=== PATIENT | female | born 1950 | race Two or more races ===

== ENCOUNTER → 2017-12-13 07:26 | Outpatient (CLI) | payer OTHER ==
[~2017-12-13 07:26] MED LIST: VALSARTAN40 MG
== END | disposition home or self-care (01) ==
LOC: LAB 07:26
DX: D64.89 Other specified anemias (principal); M19.90 Unspecified osteoarthritis, unspecified site; E03.8 Other specified hypothyroidism; E55.9 Vitamin D deficiency, unspecified; D51.9 Vitamin B12 deficiency anemia, unspecified; N39.0 Urinary tract infection, site not specified; Z13.0 Encounter for screening for diseases of the blood and blood-forming organs and certain disorders involving the immune mechanism; R19.5 Other fecal abnormalities; E11.9 Type 2 diabetes mellitus without complications; I11.9 Hypertensive heart disease without heart failure; E78.2 Mixed hyperlipidemia; E56.8 Deficiency of other vitamins

== ENCOUNTER 2018-01-14 23:24 | Emergency (ER) | payer OTHER ==
[~2018-01-14] VITALS: Ht 157.5 cm; Wt 63.5 kg
[2018-01-14] MEDS ORDERED: ELIQUIS5 MG (23:45)
[2018-01-14] MEDS ORDERED: NEXIUM40 M1 (23:45)
[2018-01-14] MEDS ORDERED: NORVASC2.5 M1 (23:45)
[2018-01-14] MEDS ORDERED: FLECAINIDE ACET50 MG (23:45)
[2018-01-15] MEDS ORDERED: ZOFRAN ODT4 MG PO (07:41)
[2018-01-15] MEDS ORDERED: MIRALAX510 GM PO (07:41)
[2018-01-15] MEDS ORDERED: INTESTINEX680 M1 PO (07:41)
== END 2018-01-15 08:04 ==
LOC: ER 23:24
DX: K29.60 Other gastritis without bleeding (principal)

== ENCOUNTER 2018-02-26 20:34 | Emergency (ER) | payer OTHER ==
[~2018-02-26] VITALS: Ht 152.4 cm; Wt 68.0 kg
[~2018-02-26 20:34] MED LIST changes: +ELIQUIS5 MG; +FLECAINIDE ACET50 MG; +INTESTINEX680 M1 PO; +MIRALAX510 GM PO; +NEXIUM40 M1; +NORVASC2.5 M1; +ZOFRAN ODT4 MG PO
== END 2018-02-26 22:17 | disposition home or self-care (01) ==
LOC: ER 20:34
DX: M94.0 Chondrocostal junction syndrome [Tietze] (principal); R07.89 Other chest pain; M54.5 Low back pain

== ENCOUNTER 2018-03-08 02:09 | Emergency (ER) | payer OTHER ==
[~2018-03-08] VITALS: Ht 157.5 cm; Wt 63.0 kg
[2018-03-08] MEDS ORDERED: ASPIR 8181 MG (02:23)
== END 2018-03-08 10:05 | disposition home or self-care (01) ==
LOC: ER 02:09
DX: R07.89 Other chest pain (principal); R10.13 Epigastric pain; F41.0 Panic disorder [episodic paroxysmal anxiety]

== ENCOUNTER 2018-03-10 02:03 | Inpatient (IN) | payer OTHER ==
[~2018-03-10] VITALS: Ht 157.5 cm; Wt 68.0 kg
[~2018-03-10 02:03] MED LIST changes: +ASPIR 8181 MG
--- NOTE | 2018-03-10 02:22 | NUR ---
SE RECIBE PTE ALERTA Y ORIENTADA POR AMANDA. PTE REFIERE PRESENTAR DOLOR EN AREA DEL EPIGASTRIO DESDE LAS 9:00PM.
--- NOTE | 2018-03-10 02:46 | NUR ---
SE RECIBE PTE FEMENIA DE 67 YRS ALERTA CONCIENTE Y TRANQUILA EN COMPANIA DE FAMILAIR. PTE ES EVALUADA POR EL ISAAK RANGELE CHRYSTALIN ORDENA TRARTAIENTO LA CUAL SE EJECUTA . SE OBSERVACIONPOR CAMBIOS.
--- NOTE | 2018-03-10 07:54 | NUR ---
SE RECIBE PACIENTE ALERTA Y ORIENTADA X3, CON BUEN PATRON RESPIRATORIO Y SIGNOS VITALES ESTABLES. CANALIZADA EN BRAZO MERNA PATENTE Y INDIRA DE EDEMA BAJANDO UN 0.9NSS AT 125ML/HR. CONSULTADO CON DR. CORDOVA. MUESTRA DE ORINA PENDIENTE A RECOLECTAR. SE FRANTZ TRANQUILA EN CAMA Y CON BARANDAS ELEVADAS. EN ESPERA DE REEVALUACION PARA MANEJO DEL DOLOR Y CONSULTA.
[2018-03-15] MEDS ORDERED: ZANTAC300 MG PO (10:42)
[2018-03-15] MEDS ORDERED: AMOX1TAB5 PO (10:42)
[2018-03-15] MEDS ORDERED: ULTRACET PO (10:43)
== END 2018-03-15 11:47 | disposition home or self-care (01) | DRG 419 ==
LOC: ER 02:03 → SEC-K 10:19 → SURG 10:19
PROVIDERS: ADMIT Surgery
PROC: 0DNW4ZZ Release Peritoneum, Percutaneous Endoscopic Approach (ICD-10-PCS; 2018-03-11)
PROC: 0FT44ZZ Resection of Gallbladder, Percutaneous Endoscopic Approach (ICD-10-PCS; principal; 2018-03-11 15:30)
DX: K80.00 Calculus of gallbladder with acute cholecystitis without obstruction (principal); K66.0 Peritoneal adhesions (postprocedural) (postinfection); E87.6 Hypokalemia; I48.0 Paroxysmal atrial fibrillation; I11.9 Hypertensive heart disease without heart failure; E78.49 Other hyperlipidemia

== ENCOUNTER 2018-06-07 01:26 | Emergency (ER) | payer OTHER ==
[~2018-06-07] VITALS: Ht 157.5 cm; Wt 61.7 kg
[~2018-06-07 01:26] MED LIST changes: +AMOX1TAB5 PO; +ULTRACET PO; +ZANTAC300 MG PO
[2018-06-07] MEDS ORDERED: VISTARIL25 MG PO (04:06)
[2018-06-07] MEDS ORDERED: KETO10TA2 PO (04:06)
== END 2018-06-07 04:55 | disposition home or self-care (01) ==
LOC: ER 01:26
DX: G44.209 Tension-type headache, unspecified, not intractable (principal)

== ENCOUNTER 2018-07-05 09:49 | Outpatient (CLI) | payer OTHER ==
[~2018-07-05 09:49] MED LIST changes: +KETO10TA2 PO; +VISTARIL25 MG PO
== END 2018-07-05 10:04 | disposition home or self-care (01) ==
LOC: LAB 09:49
DX: D64.89 Other specified anemias (principal); M19.90 Unspecified osteoarthritis, unspecified site; E78.49 Other hyperlipidemia; E03.8 Other specified hypothyroidism; E55.9 Vitamin D deficiency, unspecified; D51.9 Vitamin B12 deficiency anemia, unspecified; N39.0 Urinary tract infection, site not specified; Z13.0 Encounter for screening for diseases of the blood and blood-forming organs and certain disorders involving the immune mechanism; R19.5 Other fecal abnormalities

== ENCOUNTER 2018-07-27 10:49 | Outpatient (CLI) | payer OTHER | END 2018-07-27 10:52 | disposition home or self-care (01) | LOC: RAD 10:49 | DX: M54.2 Cervicalgia (principal) ==

== ENCOUNTER → 2018-08-23 | Outpatient (CLI) | payer OTHER | END | disposition home or self-care (01) | LOC: RAD 08:53 | DX: J84.10 Pulmonary fibrosis, unspecified (principal) ==

== ENCOUNTER 2018-09-07 02:22 | Emergency (ER) | payer OTHER ==
[~2018-09-07] VITALS: Ht 157.5 cm; Wt 63.0 kg
[2018-09-07] MEDS ORDERED: RANITIDINE HCL300 M1 PO (08:37)
== END 2018-09-07 08:55 | disposition home or self-care (01) ==
LOC: ER 02:22 → CPU-OBS 02:24 → ER 02:24
DX: K21.9 Gastro-esophageal reflux disease without esophagitis (principal); R07.89 Other chest pain

== ENCOUNTER 2018-10-24 10:31 | Emergency (ER) | payer OTHER ==
[~2018-10-24] VITALS: Ht 157.5 cm; Wt 63.0 kg
[~2018-10-24 10:31] MED LIST changes: +RANITIDINE HCL300 M1 PO
== END 2018-10-24 19:20 | disposition home or self-care (01) ==
LOC: ER 10:31
DX: K52.89 Other specified noninfective gastroenteritis and colitis (principal)

== ENCOUNTER 2020-02-02 06:23 | Emergency (ER) | payer OTHER ==
[~2020-02-02] VITALS: Ht 157.5 cm; Wt 63.5 kg
== END 2020-02-02 09:58 | disposition home or self-care (01) ==
LOC: ER 06:23 → CPU-OBS 06:27 → ER 06:27
DX: K21.9 Gastro-esophageal reflux disease without esophagitis (principal); R07.89 Other chest pain; Z03.818 Encounter for observation for suspected exposure to other biological agents ruled out

== ENCOUNTER → 2020-05-22 11:16 | Outpatient (CLI) | payer OTHER | END | disposition home or self-care (01) | LOC: LAB 11:16 | PROVIDERS: ATTEND Radiology Diagnostic Radiology | DX: D34 Benign neoplasm of thyroid gland (principal) ==

== ENCOUNTER 2020-05-30 07:52 | Outpatient (CLI) | payer OTHER | END 2020-05-30 08:09 | disposition home or self-care (01) | LOC: TOM 07:52 | PROVIDERS: ATTEND Internal Medicine | DX: R10.84 Generalized abdominal pain (principal) | CPT/HCPCS: 74177; Q9965 ==

== ENCOUNTER 2020-06-25 13:19 | Outpatient (CLI) | payer OTHER | END 2020-06-25 13:20 | disposition home or self-care (01) | LOC: NUCLEAR 13:19 | PROVIDERS: ATTEND Specialist | DX: M81.0 Age-related osteoporosis without current pathological fracture (principal) ==

== ENCOUNTER 2020-07-22 08:43 | Outpatient (CLI) | payer OTHER | END 2020-07-26 20:42 | disposition home or self-care (01) | LOC: RX STUDY 08:43 | PROVIDERS: ATTEND Surgery | DX: K59.02 Outlet dysfunction constipation (principal); K57.30 Diverticulosis of large intestine without perforation or abscess without bleeding ==

== ENCOUNTER 2021-07-03 07:31 | Emergency (ER) | payer OTHER ==
[~2021-07-03] VITALS: Ht 157.5 cm; Wt 62.6 kg
== END 2021-07-03 15:29 | disposition home or self-care (01) ==
LOC: ER 07:31
DX: R42 Dizziness and giddiness (principal); K21.9 Gastro-esophageal reflux disease without esophagitis

== ENCOUNTER 2022-06-26 13:08 | Outpatient (CLI) | payer OTHER | END 2022-06-26 13:10 | disposition home or self-care (01) | LOC: NUCLEAR 13:08 | PROVIDERS: ATTEND Student in an Organized Health Care Education/Training Program | DX: M81.0 Age-related osteoporosis without current pathological fracture (principal) ==

== ENCOUNTER 2023-05-06 06:42 | Emergency (ER) | payer OTHER ==
[~2023-05-06] VITALS: Ht 157.5 cm; Wt 60.3 kg
[2023-05-06] MEDS ORDERED: CRESTOR10 MG PO (06:48)
[2023-05-06] MEDS ORDERED: MECLIZINE HCL 25 MG TABLET PO ONE (08:30)
[2023-05-06 08:54] LABS: HEMATOCRIT 43.4 % (36.0-45.00); HEMOGLOBIN 14.9 g/dL (12.0-15.00); MEAN CELL VOLUME 92.5 fL (80.00-100.00); MEAN CORPUSCULAR HEMOGLOBIN 31.7 pg (27.00-32.0); MEAN CORPUSCULAR HGB CONC 34.3 g/dl (32.0-36.0); PLATELET COUNT 204 K/uL (150-450); RED CELL DISTRIBUTION WIDTH 14.4 % (11.5-14.5)
[2023-05-06 09:25] LABS: ALBUMIN 4.2 gm/dL (3.4-5.0); BILIRUBIN TOTAL 0.49 mg/dL (0.3-1.2); CREATININE SERUM 0.67 mg/dL (0.55-1.02); GFR 86.76; GLOBULINA 3.7 G/DL (2.4-3.5); POTASSIUM 3.77 mEq/L (3.5-5.1); TOTAL PROTEIN 7.9 gm/dL (6.4-8.2)
[2023-05-06 09:48] LABS: URINE APPEARANCE Clear; URINE BILIRRUBIN Negative (NEGATIVE); URINE BLOOD Trace; URINE COLOR Yellow; URINE GLUCOSE Negative (NEGATIVE); URINE LEUKOCYTE Negative; URINE NITRATE Negative; URINE PROTEIN Negative (NEGATIVE)
[2023-05-06 09:54] LABS: URINE BACTERIA 41.5 uL (0.0-1933); URINE EPITHELIAL CELLS 13.7 uL (0.0-38.8); URINE RBC 43.9 uL (0.0-20.8); URINE WBC 5.8 uL (0.0-23.2)
[2023-05-06] MEDS ORDERED: ANTIVERT25 M2 PO (10:30)
== END 2023-05-06 11:32 | disposition home or self-care (01) ==
LOC: ER 06:42
PROVIDERS: General Practice
DX: R53.81 Other malaise (principal); R42 Dizziness and giddiness; Z20.822 Contact with and (suspected) exposure to COVID-19; I10 Essential (primary) hypertension; E11.9 Type 2 diabetes mellitus without complications; Z88.8 Allergy status to other drugs, medicaments and biological substances

== ENCOUNTER → 2023-08-26 | Emergency (ER) | payer OTHER ==
[~2023-08-26] VITALS: Ht 157.5 cm; Wt 60.8 kg
[~2023-08-26] MED LIST changes: +ANTIVERT25 M2 PO; +CARBIDOPA-LEVO1 EA13; +CRESTOR10 MG PO; +DEXAMETHASONE SODIUM PHOSPHATE 4 MG/ML VIAL IM ONE; +DOLOGESIC 500-1 EACH PO; +GUAIFENESIN/DEXTROMETHORPHAN 10ML BLIST.PACK PO ONE; +KETOROLAC TROMETHAMINE 60 MG VIAL IM ONE; +PAXLOVID 300-11 EAC1 PO; +PEPCID AC20 MG PO; +TUSNEL LIQUID178 ML PO
[2023-08-26 12:39] LABS: HEMATOCRIT 42.9 % (36.0-45.00); HEMOGLOBIN 14.9 g/dL (12.0-15.00); MEAN CELL VOLUME 92.3 fL (80.00-100.00); MEAN CORPUSCULAR HGB CONC 34.6 g/dl (32.0-36.0); PLATELET COUNT 202 K/uL (150-450); RED BLOOD COUNT 4.65 M/uL (4.00-6.00); RED CELL DISTRIBUTION WIDTH 14.3 % (11.5-14.5)
== END | disposition home or self-care (01) ==
LOC: ER 11:25
PROVIDERS: General Practice
DX: U07.1 COVID-19 (principal); R53.81 Other malaise; Z88.8 Allergy status to other drugs, medicaments and biological substances
CPT/HCPCS: 36415; 96372; 99282; J1100; J1885

== ENCOUNTER → 2024-06-04 | Emergency (ER) | payer OTHER ==
[~2024-06-04] VITALS: Ht 157.5 cm; Wt 61.7 kg
[~2024-06-04] MED LIST changes: +ACETAMINOPHEN500 M1 PO; +CARBIDOPA25 MG PO; -DEXAMETHASONE SODIUM PHOSPHATE 4 MG/ML VIAL IM ONE; +GILTUSS COUGH-118 M1 PO; -GUAIFENESIN/DEXTROMETHORPHAN 10ML BLIST.PACK PO ONE; -KETOROLAC TROMETHAMINE 60 MG VIAL IM ONE; +ZITHROMAX200 MG PO
[2024-06-04 09:05] LABS: HEMATOCRIT 43.1 % (36.0-45.00); HEMOGLOBIN 14.4 g/dL (12.0-15.00); MEAN CELL VOLUME 91.6 fL (80.00-100.00); MEAN CORPUSCULAR HEMOGLOBIN 30.6 pg (27.00-32.0); MEAN CORPUSCULAR HGB CONC 33.4 g/dl (32.0-36.0); PLATELET COUNT 185 K/uL (150-450); RED BLOOD COUNT 4.71 M/uL (4.00-6.00); RED CELL DISTRIBUTION WIDTH 14.3 % (11.5-14.5)
[2024-06-04 09:16] LABS: COVID-19 AG NEGATIVE (NEGATIVE); INFLUENZA A AG NEGATIVE (NEGATIVE)
== END | disposition home or self-care (01) ==
LOC: ER 07:00
PROVIDERS: Preventive Medicine Public Health & General Preventive Medicine
DX: J06.9 Acute upper respiratory infection, unspecified (principal); Z20.822 Contact with and (suspected) exposure to COVID-19; I10 Essential (primary) hypertension; G20.A1 Parkinson's disease without dyskinesia, without mention of fluctuations; Z88.8 Allergy status to other drugs, medicaments and biological substances